=== PATIENT | female | born 1955 | race Caucasian/White ===

== ENCOUNTER → 2019-12-15 | Outpatient (CLI) | payer BC ==
--- NOTE | 2019-12-15 08:30 | RAD ---
EXAM DESCRIPTION: Pelvis CLINICAL HISTORY: 64 years Female, PAIN IN RIGHT HIP COMPARISON: None. FINDINGS: Single AP view of the pelvis was obtained. The greater trochanters and portions of the left iliac crest are excluded from this exam. With this in mind, no acute fracture or malalignment is seen. No joint space narrowing. No soft tissue abnormality. IMPRESSION: Negative exam, slightly limited as detailed above. Electronically signed by: Giovany Taylor MD 12/15/2019 8:29 AM CDT
--- NOTE | 2019-12-15 08:31 | RAD ---
EXAM DESCRIPTION: Knee,Right Complete CLINICAL HISTORY: 64 years Female, PAIN IN RIGHT KNEE COMPARISON: None. Findings: Four views/radiographs Location: Right knee No acute fracture or dislocation. Osteopenia. Moderate medial compartment narrowing with lateral tibial translation. Tricompartmental osteophytes. Patellofemoral joint space narrowing. No significant joint effusion. IMPRESSION: Right knee osteoarthritis. No acute osseous abnormality. Electronically signed by: Hong Newman MD 12/15/2019 8:30 AM CDT
== END ==
LOC: RAD 07:59
PROVIDERS: ATTEND Orthopaedic Surgery
DX: M17.11 Unilateral primary osteoarthritis, right knee (principal); M25.551 Pain in right hip

== ENCOUNTER → 2020-08-01 | Outpatient (CLI) | payer BC | LOC: LAB.O 09:33 | PROVIDERS: ATTEND Orthopaedic Surgery | DX: Z01.818 Encounter for other preprocedural examination (principal) ==

== ENCOUNTER → 2020-08-22 | Outpatient (CLI) | payer BC ==
--- NOTE | 2020-08-22 08:54 | RAD ---
EXAM DESCRIPTION: Pelvis CLINICAL HISTORY: 65 years Female, HIP PAIN COMPARISON: December 15, 2019 IMPRESSION: X-ray 1 view pelvis AP No bone, joint, soft tissue abnormality. Negative Electronically signed by: Alber Mobley MD 08/22/2020 8:53 AM [facility]
--- NOTE | 2020-08-22 08:57 | RAD ---
EXAM DESCRIPTION: Knee,Right Complete CLINICAL HISTORY: 65 years, Female, KNEE PAIN COMPARISON: None TECHNIQUE: X-ray three-view right knee FINDINGS: Significant medial and patellofemoral joint space narrowing and marginal osteophyte formation. Varus deformity of the knee joint due to the medial compartment narrowing. No fracture or bone lesion. No effusion. IMPRESSION: 1. Moderately severe medial and patellofemoral osteoarthritis Electronically signed by: Alber Mobley MD 08/22/2020 8:55 AM [facility]
== END ==
LOC: RAD 08:05
PROVIDERS: ATTEND Orthopaedic Surgery
DX: M25.551 Pain in right hip (principal); M17.11 Unilateral primary osteoarthritis, right knee

== ENCOUNTER 2020-08-30 05:18 | Inpatient (IN) | payer BC ==
[2020-08-30] MEDS ORDERED: SODIUM CHLORIDE 0.9% 250ML 250 ML ONE (05:52)
[2020-08-30] MEDS ORDERED: SODIUM CHLORIDE 0.9% 100ML 0 ML IVPB ONE (05:52)
[2020-08-30] MEDS ORDERED: SODIUM CHL 0.9% 100ML MINI-BAG 100 ML IVPB ONE (05:52)
[2020-08-30] MEDS ORDERED: SODIUM CHLORIDE 0.9% (FLUSH) 10 ML SYG ONE (05:53)
[2020-08-30] MEDS ORDERED: TRANEXAMIC ACID 1,000 MG/10 ML VIAL ONE ×2 (05:53→07:50)
[2020-08-30] MEDS ORDERED: LACTATED RINGERS 1,000 ML ONE (05:53)
[2020-08-30] MEDS ORDERED: ceFAZolin SODIUM 1 GM VIAL ONE ×3 (05:53→14:01)
[2020-08-30] MEDS ORDERED: VANCOMYCIN HCL INJ 1,000 MG VIAL IVPB ONE ×5 (05:53→14:01)
[2020-08-30] MEDS ORDERED: BUPIVACAINE 0.5% 30 ML VIAL INJ ONE ×2 (06:23→06:52)
[2020-08-30] MEDS ORDERED: BUPIVACAINE LIPOSOME 13.3 MG/ML VIAL INJ ONE ×2 (06:23→06:52)
[2020-08-30] MEDS ORDERED: KETAMINE HCL 100 MG/ML VIAL ONE (06:28)
[2020-08-30] MEDS ORDERED: DEXMEDETOMIDINE HCL 200 MCG/2 ML INJ IV ONE (06:28)
[2020-08-30] MEDS ORDERED: TRANEXAMIC ACID 1,000 MG/10 ML VIAL IV ONE (06:29)
[2020-08-30] MEDS ORDERED: MIDAZOLAM INJ 5 MG/5 ML VIAL ONE (06:29)
[2020-08-30] MEDS ORDERED: HYDROmorphone HCL INJ 2 MG/ML VIAL ONE (06:29)
[2020-08-30] MEDS ORDERED: FAMOTIDINE INJ 10 MG/ML VIAL IV ONE (06:29)
[2020-08-30] MEDS ORDERED: LACTATED RINGERS 1,000 ML IVS ONE (06:29)
[2020-08-30] MEDS ORDERED: TRANEXAMIC ACID 1,000 MG/10 ML VIAL INJ ONE (06:52)
[2020-08-30] MEDS ORDERED: ceFAZolin SODIUM 1 GM VIAL INJ ONE (06:52)
[2020-08-30] MEDS ORDERED: BISACODYL SUPPOSITORY 10 MG PR PRN (09:18)
[2020-08-30] MEDS ORDERED: MORPHINE SULFATE INJ 10 MG/ML VIAL IM PRN (09:18)
[2020-08-30] MEDS ORDERED: ZOLPIDEM TARTRATE 5 MG TAB PO PRN (09:18)
[2020-08-30] MEDS ORDERED: PROMETHAZINE HCL INJ 12.5 MG in SODIUM CHLORIDE 0.9% 50ML 50 ML IVPB PRN (09:18)
[2020-08-30] MEDS ORDERED: MAGNESIUM HYDROXIDE 30 ML UD PO PRN (09:18)
[2020-08-30] MEDS ORDERED: SODIUM CHLORIDE 0.9% (FLUSH) 10 ML SYG IV PRN (09:18)
[2020-08-30] MEDS ORDERED: ACETAMINOPHEN 500 MG TAB PO PRN (09:18)
[2020-08-30] MEDS ORDERED: ALUMINUM & MAGNESIUM HYDROXIDE 30 ML UD PO PRN (09:18)
[2020-08-30] MEDS ORDERED: ONDANSETRON INJ 4 MG/2 ML VIAL IV PRN (09:18)
[2020-08-30] MEDS ORDERED: ACETAMINOPHEN 325 MG TAB PO PRN (09:18)
[2020-08-30] MEDS ORDERED: hydrOXYzine HCl 25 MG TAB PO PRN (09:18)
[2020-08-30] MEDS ORDERED: TEMAZEPAM 15 MG CAP PO PRN (09:18)
[2020-08-30] MEDS ORDERED: HYDROcodone 5MG/APAP 325MG 1 EA TAB PO PRN (09:18)
[2020-08-30] MEDS ORDERED: DEX 5% W/NACL 0.45% 1000ML 1,000 ML IVS PRN (09:18)
[2020-08-30] MEDS ORDERED: PROMETHAZINE HCL INJ 25 MG in SODIUM CHLORIDE 0.9% 50ML 50 ML IVPB PRN (09:18)
[2020-08-30] MEDS ORDERED: NALOXONE HCL INJ 0.4 MG/ML VIAL IV PRN (09:18)
[2020-08-30] MEDS ORDERED: BENZOCAINE-MENTH LOZ (CEPACOL) 1 EA LOZ MT PRN (09:18)
[2020-08-30] MEDS ORDERED: MORPHINE SULFATE INJ 10 MG/ML VIAL IV PRN (09:18)
[2020-08-30] MEDS ORDERED: TRANEXAMIC ACID INJ 1,000 MG in SODIUM CHLORIDE 0.9% 100ML 100 ML IVPB ONE (09:18)
[2020-08-30] MEDS ORDERED: MORPHINE PCA 1 MG/ML 100 ML BAG IVPB ONE ×2 (09:23→09:42)
[2020-08-30] MEDS ORDERED: CADD ADMIN SET 1 EA PKG INJ ONE (09:23)
[2020-08-30] MEDS ORDERED: MORPHINE PCA 1 MG/ML 100 ML BAG IVPB SCH (09:30)
--- NOTE | 2020-08-30 10:03 | RAD ---
PROVIDED CLINICAL HISTORY/REASON FOR EXAM: RIGHT TKA Findings/impression: One intraoperative fluoroscopic images. Please see operative note Dose: Not provided [id number] Time: 2.2 seconds Electronically signed by: Hong eNwman MD 08/30/2020 10:01 AM [facility]
[2020-08-30] MEDS ORDERED: hydrOXYzine HCl 25 MG TAB PO ONE (10:05)
[2020-08-30] MEDS: IV SET AND CAP CHANGE INJ INJ SCH (10:32)
--- NOTE | 2020-08-30 11:25 | RAD ---
EXAM DESCRIPTION: Knee,Right 2 Views CLINICAL HISTORY: 65 years, Female, TKA COMPARISON: Previous x-ray right knee August 22, 2020 TECHNIQUE: Two x-ray views of the right knee FINDINGS: Total right knee arthroplasty. Anatomic alignment of femoral and tibial components. There is air in the soft tissues. Lateral view shows normal position of the patella. No complicating fracture. IMPRESSION: Total right knee arthroplasty. Electronically signed by: Ajith Martin MD 08/30/2020 11:24 AM [facility]
[2020-08-30] MEDS ORDERED: CELECOXIB 100 MG CAP ONE (14:01)
[2020-08-30] MEDS ORDERED: SODIUM CHL 0.9% 250ML (AVIVA) 250 ML IVPB ONE (14:02)
[2020-08-30] MEDS ORDERED: SODIUM CHL 0.9% 50ML MIN-BAG+ 50 ML IVPB ONE (14:02)
[2020-08-30] MEDS: ceFAZolin SODIUM 1 GM in SODIUM CHL 0.9% 50ML MIN-BAG+ 50 ML IVPB SCH (16:01)
[2020-08-30] MEDS: CELECOXIB 100 MG CAP PO SCH (16:01)
[2020-08-30] MEDS: VANCOMYCIN HCL INJ 1,000 MG in SODIUM CHLORIDE 0.9% 250ML 250 ML IVPB SCH (17:17)
--- NOTE | 2020-08-30 18:38 | CONS ---
SUPERVISING PHYSICIAN: Oscar Bird M.D. REASON FOR CONSULTATION: Postoperative total knee replacement and medical management. HISTORY OF PRESENT ILLNESS: Ms. Pierre is a 65 year-old female patient that has a longstanding history of osteoarthritis involving the right knee. She has failed conservative treatment measures as an outpatient which included multiple injections, antiinflammatories, topical medications, weight loss with activity modification. She continued to have a significant amount of pain in that right knee that was limiting her activities of daily living. She requested surgical intervention by Dr. Morris. She was admitted today for elective total right knee arthroplasty. She had no intraoperative complications. She was seen in the immediate postoperative state in stable condition. PAST MEDICAL HISTORY: 1. Osteoarthritis of the right knee. 2. Shingles. PAST SURGICAL HISTORY: 1. Total left knee replacement. HOME MEDICATIONS: 1. Valacyclovir 1 gram daily as needed. ALLERGIES: NO KNOWN DRUG ALLERGIES. FAMILY HISTORY: Noncontributory with current admission. SOCIAL HISTORY: The patient is a retired middle school sports coach. She lives in [place], [place]. She is . She has no remote history of tobacco or illicit drug use. She does not drink any alcohol. REVIEW OF SYSTEMS: CONSTITUTIONAL: Denies any fevers, chills, general malaise or generalized weakness. HEENT: Denies any headaches, vision changes, sore throat, ear aches or nasal congestion. RESPIRATORY: Denies any coughing, wheezing or shortness of breath. CARDIOVASCULAR: Denies any palpitations, syncopal episodes or chest pains. GASTROINTESTINAL: Denies any nausea, vomiting, diarrhea, constipation or abdominal pain. GENITOURINARY: Denies any dysuria, hematuria, polyuria. MUSCULOSKELETAL: As noted in History of Present Illness. SKIN: Denies any unexplained lesions, rashes, moles or changes. NEUROLOGIC: Denies any ataxia, seizures, weakness, syncopal episodes, vision changes, headaches, migraines or focal neuromotor deficits. HEMATOLOGIC: Denies any unexplained bleeding, bruising or transfusion reaction. PHYSICAL EXAMINATION: VITAL SIGNS: Temperature 97.7, pulse 83, blood pressure 115/78, respirations 16, satting 96% on room air. GENERAL: The patient is resting comfortably. She currently is utilizing the CPM. Does not show to be in any acute distress. She is alert. HEENT: Tympanic membranes clear bilaterally. Oropharynx is pink, moist without any lesions. CHEST: Lung sounds are clear to auscultation bilaterally without any rhonchi, wheezes or rales. HEART: Regular rate and rhythm without any appreciable murmurs, gallops, or rubs. ABDOMEN: Soft, nontender. Positive bowel sounds. EXTREMITIES: Right leg has a surgical dressing in place. She is currently in the CPM with distal pulses being strong, capillary refill being brisk. NEUROLOGIC: She is alert and oriented times three. Cranial nerves II-XII are grossly intact. Facial features are symmetrical. Extraocular movements are within normal limits. There is no notable nystagmus. SKIN: Warm, pink and dry. LABORATORY: Preoperative BMP was essentially unremarkable. Preoperative drug screen was negative. Postoperative H&H is pending. RADIOLOGY: Postoperative knee x-ray shows total right knee arthroplasty. ASSESSMENT: 1. Osteoarthritis of the right knee failed outpatient treatment measures requiring total right knee arthroplasty performed by Dr. Donis Morris. Postoperative day #0. 2. Intermittent shingles rash with no current signs of activation without any rashes seen preoperatively and postoperatively. PLAN: Will follow the patient postoperatively as she continues with her physical therapy and rehab efforts. I did discuss with her the plan. At this point she is opting to do her outpatient rehab through facilities in [place]. Will have those in line prior to discharge during discharge planning. I have reviewed her medications and resumed those as appropriate to her care. Will follow her as she progresses through her postoperative phase. Until we can transition to outpatient management will continue to monitor and treat as needed. [facility][id number] [facility]
[2020-08-30] MEDS ORDERED: ENOXAPARIN SODIUM 30 MG/0.3 ML SYG SUBCU ONE (20:01)
[2020-08-30] MEDS: DOCUSATE CALCIUM 240 MG CAP PO SCH (20:09)
[2020-08-30] MEDS: ENOXAPARIN SODIUM 30 MG/0.3 ML SYG SUBCU SCH (22:51)
[2020-08-31] MEDS: ceFAZolin SODIUM 1 GM in SODIUM CHL 0.9% 50ML MIN-BAG+ 50 ML IVPB SCH ×2 (00:21→08:42)
[2020-08-31] MEDS: HYDROcodone 10MG/APAP 325MG 1 EA TAB PO PRN ×3 (01:04→21:00)
[2020-08-31] MEDS: VANCOMYCIN HCL INJ 1,000 MG in SODIUM CHLORIDE 0.9% 250ML 250 ML IVPB SCH (06:14)
[2020-08-31] MEDS: MAGNESIUM OXIDE 400 MG TAB PO SCH (08:42)
[2020-08-31] MEDS: CELECOXIB 100 MG CAP PO SCH ×2 (08:44→16:07)
--- NOTE | 2020-08-31 09:01 | OP ---
DATE OF PROCEDURE: 08/30/20 PREOPERATIVE DIAGNOSIS: 1. Osteoarthritis of the right knee. POSTOPERATIVE DIAGNOSIS: 1. Osteoarthritis of the right knee. PROCEDURE: 1. Right knee arthroplasty. SURGEON: Donis Morris MD. PROSTHODONTIST: Ed Ortega CST, SA-C. ANESTHESIA: General anesthesia. COMPLICATIONS: None. FINDINGS: Severe arthritis of the knee. INDICATION: Ms. Pierre has a history of severe knee pain that has been refractory to conservative measures. After discussing the risks, benefits and alternatives to operative therapy, the patient has given informed consent for that. PROCEDURE: The patient was brought to the Operating Room and placed in supine position. General anesthesia was induced and the patient's leg was sterilely prepped and draped. Following prepping and draping, the distal femur was exposed and using an intramedullary guide, the distal femoral cut was made. The appropriate sized cutting block was measured, pinned into place, and the anterior, posterior, and chamfer cuts were made. The ACL was transected and the tibia was subluxed. Both the medial and lateral menisci were removed. An intramedullary guide was used to make the proximal tibial cut. The appropriate sized base plate was placed and a trial polyethylene was placed. The trial femur was placed, the knee was reduced, and the knee was taken through a range of motion. The knee was stable in anterior, posterior, varus and valgus stress. The patella tracked anatomically without evidence of subluxation or dislocation. After trialing, the trial components were removed and the bony surfaces were thoroughly irrigated with saline. Following irrigation, the surfaces were dried and the final components were cemented into place. The excess cement was removed and the remaining cement was allowed to cure. The knee was again taken through a range of motion to confirm stability. The wound was then irrigated with saline and closure was performed using PDS to approximate the arthrotomy followed by closure of the subcutaneous tissues with a combination of running and interrupted Monocryl sutures. Sterile dressing was placed. The patient was awoken from anesthesia and taken to Recovery. COMPONENTS: [employer] Triathlon knee, size 5 femur, size 4 tibia, 11 mm insert. POSTOPERATIVE PLAN: The patient will be weight-bearing as tolerated on postoperative day 1. [facility][id number] [facility]
[2020-08-31] MEDS: ENOXAPARIN SODIUM 30 MG/0.3 ML SYG SUBCU SCH ×2 (13:24→22:45)
[2020-08-31] MEDS: CYCLOBENZAPRINE HCL 10 MG TAB PO PRN (19:16)
--- NOTE | 2020-08-31 20:30 | PN ---
SUPERVISING PHYSICIAN: Oscar Bird M.D. DATE: 08/31/20 SUBJECTIVE: The patient is doing well. She has been participating with Physical Therapy and has no complaints. OBJECTIVE: VITAL SIGNS: She has been afebrile, temperature 98.4, pulse 63, blood pressure 105/68, respirations 16, satting 95% on room air at rest. GENERAL: The patient appears to be resting comfortably. CHEST: Clear to auscultation. HEART: Regular rate and rhythm. ABDOMEN: Soft, non-tender. Positive bowel sounds. EXTREMITIES: Right knee still has a large dressing in place. Distally pulses are strong, capillary refill is brisk. NEUROLOGIC: She is alert and oriented times three. LABORATORY: Postoperative H&H 11.7 and 35.0. ASSESSMENT: 1. Osteoarthritis of the right knee failed outpatient treatment measures requiring total right knee arthroplasty performed by Dr. Donis Morris. Postoperative day #1. 2. Intermittent shingles rash with no current signs of activation without any rashes seen preoperatively and postoperatively. PLAN: Will continue to follow the patient along with Physical Therapy for her rehabilitation efforts. The plan is to send her to Sports Therapy facility in [place]. At this point I believe she is to be discharged on Saturday. On discharge, she will need, as per Dr. Morris's discharge protocol, she will need doxycycline 100 mg for 7 days. She will also need Xarelto and pain management as appropriate. Until we can transition to outpatient management will continue to follow and treat as needed. #[id number] [facility]
[2020-08-31] MEDS: DOCUSATE CALCIUM 240 MG CAP PO SCH (20:42)
[2020-08-31] MEDS: traMADol HCL 50 MG TAB PO PRN (22:55)
[2020-09-01] MEDS: HYDROcodone 10MG/APAP 325MG 1 EA TAB PO PRN ×5 (02:48→23:57)
[2020-09-01] MEDS ORDERED: CELECOXIB 100 MG CAP ONE (07:07)
[2020-09-01] MEDS ORDERED: ENOXAPARIN SODIUM 30 MG/0.3 ML SYG SUBCU ONE (07:08)
[2020-09-01] MEDS: SODIUM CHLORIDE 0.9% (FLUSH) 10 ML SYG IV SCH ×2 (08:05→20:20)
[2020-09-01] MEDS: CELECOXIB 100 MG CAP PO SCH ×2 (08:05→16:29)
[2020-09-01] MEDS: MAGNESIUM OXIDE 400 MG TAB PO SCH (08:05)
--- NOTE | 2020-09-01 09:13 | PN ---
DATE: 08/31/20 SUBJECTIVE: Ms. Pierre is doing really well. She has excellent quad control. OBJECTIVE: Afebrile. Vital signs stable. Dressing is clean, dry and intact. ASSESSMENT: Status post total knee arthroplasty. PLAN: The plan at this point is for her to continue with her weightbearing as tolerated. #[id number] [facility]
--- NOTE | 2020-09-01 09:15 | PN ---
DATE: 09/01/20 SUBJECTIVE: Ms. Pierre is having more pain today as she has had her block wear off. She is up to a chair and has been walking. OBJECTIVE: Afebrile. Vital signs stable. Wound is clean. There are no signs or symptoms of infection. ASSESSMENT: Status post total knee arthroplasty. PLAN: The plan at this point is for her to continue with her weightbearing as tolerated. We will discharge her when she meets discharge criteria. #[id number] [facility]
[2020-09-01] MEDS: ENOXAPARIN SODIUM 30 MG/0.3 ML SYG SUBCU SCH ×2 (11:00→23:15)
--- NOTE | 2020-09-01 19:18 | PN ---
SUPERVISING PHYSICIAN: Oscar Bird M.D. DATE: 09/01/20 SUBJECTIVE: The patient is sitting up in her chair. She has no complaints. We discussed her discharge plan which should be tomorrow if she continues to improve. OBJECTIVE: VITAL SIGNS: Temperature 98.1, heart rate 75, blood pressure 127/77, respiratory rate 16, O2 saturation 96% on room air. RESPIRATORY: Essentially clear to auscultation bilaterally. CARDIAC: Regular rate and rhythm. EXTREMITIES: Right knee has a dressing that is dry and intact. Bilateral pedal pulses are palpable at +2. NEUROLOGIC: She is awake, alert and oriented times three. LABORATORY: There are no labs or films to report at this time. ASSESSMENT: 1. Osteoarthritis of the right knee failed outpatient treatment measures requiring total right knee arthroplasty performed by Dr. Donis Morris. Postoperative day #2. 2. Intermittent shingles rash with no current signs of activation and no rashes seen preoperatively and postoperatively. PLAN: We will continue present supportive care. Orthopedic issues will be per Dr. Donis Morris, orthopedic surgeon. She will continue with her physical therapy for strengthening and conditioning with plan for discharge tomorrow. She will have outpatient physical therapy in her home town. #[id number] [facility]
[2020-09-01] MEDS: DOCUSATE CALCIUM 240 MG CAP PO SCH (20:19)
[2020-09-02] MEDS: HYDROcodone 10MG/APAP 325MG 1 EA TAB PO PRN ×2 (04:14→07:52)
[2020-09-02 06:00] VITALS: O2SAT 94
[2020-09-02] MEDS: CELECOXIB 100 MG CAP PO SCH (07:52)
[2020-09-02] MEDS: MAGNESIUM OXIDE 400 MG TAB PO SCH (10:06)
[2020-09-02] MEDS: SODIUM CHLORIDE 0.9% (FLUSH) 10 ML SYG IV SCH (10:06)
[2020-09-02] MEDS: IV SET AND CAP CHANGE INJ INJ SCH (10:07)
[2020-09-02] MEDS: traMADol HCL 50 MG TAB PO PRN (11:12)
[2020-09-02] MEDS: CYCLOBENZAPRINE HCL 10 MG TAB PO PRN (11:13)
[2020-09-02 14:06] VITALS: BP 109/67; TEMP 98.1
[2020-09-02] MEDS ORDERED: BISACODYL SUPPOSITORY 10 MG PR ONE (21:00)
[2020-09-02] MEDS ORDERED: MAGNESIUM HYDROXIDE 30 ML UD PO ONE (21:00)
--- NOTE | 2020-09-07 08:57 | DS ---
SUPERVISING PHYSICIAN: Oscar Bird MD DISCHARGE DIAGNOSIS: 1. Osteoarthritis of the right knee failed outpatient treatment measures requiring total right knee arthroplasty performed by Dr. Donis Morris. Postoperative day #3. 2. Intermittent shingles rash with no current signs of activation and no rashes seen preoperatively or postoperatively. HISTORY OF PRESENT ILLNESS: This is a 65-year-old female patient who was admitted to the hospital on her day of surgery. She has had a significant history of osteoarthritis involving the right knee. She had failed conservative treatment as an outpatient which included multiple injections, antiinflammatories, topical medications, and has failed to gain any relief. She requested surgical intervention by Dr. Morris. She was taken to surgery on the date of admission. She had no intraoperative complications and was admitted to the Medical/Surgical Floor postoperatively in stable condition. HOSPITAL COURSE: The patient had no problems postoperatively. She was weaned off her [employer] pain medications and transitioned to hydrocodone. She completed her physical therapy. She has met all of her discharge criteria and will be discharged home to followup with outpatient physical therapy in her hometown of [place]. Those arrangements have been made. LABORATORY: Her postoperative hemoglobin was 11.7 and hematocrit 35. RADIOLOGY: As per the EMR. DISCHARGE PLAN: The patient will be discharged home in stable condition. She is to resume her previous diet and her activity as per physical therapy. She will do outpatient physical therapy in [place]. She has a followup appointment with Dr. Morris as previously instructed. In addition to her home medications, she will also be on one week of doxycycline, some cyclobenzaprine, hydrocodone and Xarelto for 9 days. She is to return to the hospital or followup with Dr. Morris for any problems or complications. DISCHARGE MEDICATIONS: 1. Valacyclovir. 2. Cyclobenzaprine. 3. Hydrocodone. 4. Xarelto. 5. Doxycycline. #[id number] [facility]
== END 2020-09-02 10:45 | disposition home or self-care (01) | DRG 470 ==
LOC: AMB 05:18 → MS 10:29
PROVIDERS: ADMIT Orthopaedic Surgery; ATTEND Orthopaedic Surgery
PROC: 0SRC0J9 Replacement of Right Knee Joint with Synthetic Substitute, Cemented, Open Approach (ICD-10-PCS; principal; 2020-08-30 07:00)
DX: M17.11 Unilateral primary osteoarthritis, right knee (principal)